=== PATIENT | female | born 1965 | race Caucasian/White ===

== ENCOUNTER → 2017-02-24 | Outpatient (CLI) | payer OTHER ==
[~2017-02-24] VITALS: Ht 162.6 cm; Wt 81.6 kg
[~2017-02-24] MED LIST: ASPIRIN81 M2 PO; AUBAGIO14 MG PO; LEVAQUIN500 MG PO; MEGARED PLANT-300 MG PO; MOTRIN600 MG PO; MULTIVITAMIN1 EAC2 PO; TOPAMAX100 MG PO; TOPAMAX25 MG PO; VITAMIN D2000 UNIT PO
[2017-02-26 19:07] LABS: CHOLINESTERASE 5150 IU/L (2673-6592)
== END | disposition home or self-care (01) ==
LOC: AMB 08:00
PROVIDERS: Internal Medicine
PROC: 0DJD8ZZ Inspection of Lower Intestinal Tract, Via Natural or Artificial Opening Endoscopic (ICD-10-PCS; principal; 2017-02-24)
DX: Z12.11 Encounter for screening for malignant neoplasm of colon (principal); K57.30 Diverticulosis of large intestine without perforation or abscess without bleeding; K64.8 Other hemorrhoids; G35 Multiple sclerosis; Z83.3 Family history of diabetes mellitus; Z82.49 Family history of ischemic heart disease and other diseases of the circulatory system; Z79.82 Long term (current) use of aspirin
CPT/HCPCS: 82480 90; J1100; J2250; J2405; J3010